=== PATIENT | female | born 1990 | race African-American/Black ===

== ENCOUNTER 2021-10-28 20:49 | Emergency (ER) | payer MEDICAID ==
[~2021-10-28] VITALS: Ht 157.5 cm; Wt 62.6 kg
--- NOTE | 2021-10-28 21:08 | NUR ---
PT WALKED INTO ER C/O CONSTANT CP SINCE YESTERDAY. CAME IN DUE TO WORSENING PAIN. 06/15
[2021-10-28] MEDS ORDERED: ASPIRIN 81 MG TAB.CHEW PO ONE (21:15)
[2021-10-28] MEDS ORDERED: NITROGLYCERIN OINT 1 GM PACKET TP ONE ×2 (21:15→21:37)
--- NOTE | 2021-10-28 21:34 | NUR ---
Dr. Donohue on bedside.
[2021-10-28 21:36] LABS: *URINE HCG, QUAL NEGATIVE (NEGATIVE)
[2021-10-28 21:37] LABS: HEMATOCRIT 39.4 % (31.2-41.9); MEAN CORPUSCULAR HEMOGLOBIN 26.1 uug (24.7-32.8); MEAN CORPUSCULAR VOLUME 78.2 fL (75.5-95.3); PLATELET COUNT (AUTO) 262 K/uL (179-408)
[2021-10-28] MEDS ORDERED: ASPIRIN 81 MG TAB.CHEW ONE (21:37)
[2021-10-28 21:58] LABS: CREATININE 0.9 mg/dL (0.6-1.3); POTASSIUM 3.5 mmol/L (3.5-5.1)
[2021-10-28 22:09] LABS: *AMPHETAMINE, URINE NEGATIVE (NEGATIVE); *CANNABINOID, URINE NEGATIVE (NEGATIVE); *COCCAINE, URINE NEGATIVE (NEGATIVE); *OPIATE, URINE NEGATIVE (NEGATIVE); *PHENCYCLIDINE SCREEN,URINE NEGATIVE (NEGATIVE)
[2021-10-28 22:10] LABS: BILIRUBIN,DIRECT 0.1 mg/dL (0.0-0.2); BILIRUBIN,TOTAL 0.4 mg/dL (0.2-1.0); TOTAL PROTEIN, SERUM 7.5 g/dL (6.4-8.2)
--- NOTE | 2021-10-28 22:30 | NUR ---
Called diamond powder technician Marco A to f/u on ETA of [facility], stated that he will call them again.
--- NOTE | 2021-10-28 22:45 | NUR ---
US tech at bedside.
[2021-10-28] MEDS ORDERED: HYDR-4209 PO (23:26)
--- NOTE | 2021-10-28 23:33 | NUR ---
Patient discharged to home in stable condition. Written and verbal after care instructions given. Patient verbalizes understanding of instructions. Stressed follow up or return to ER for worsening s/s.
[2021-10-28 23:36] VITALS: BP 118/81
== END 2021-10-28 23:33 | disposition home or self-care (01) ==
LOC: ER 20:51
DX: R07.9 Chest pain, unspecified (principal); R20.2 Paresthesia of skin
CPT/HCPCS: 36415; 70030-TC; 71045; 84703; 85025; 93005; A4663

== ENCOUNTER 2021-12-23 19:57 | Emergency (ER) | payer MEDICAID ==
[~2021-12-23] VITALS: Ht 157.5 cm; Wt 63.5 kg
[~2021-12-23 19:57] MED LIST: HYDR-4209 PO
--- NOTE | 2021-12-23 20:10 | NUR ---
pt ambulated to room 2a states has heart flutters and left side numbness.
--- NOTE | 2021-12-23 20:20 | NUR ---
Dr. Mendez at bedside for MSE.
[2021-12-23] MEDS ORDERED: KETOROLAC TROMETHAMINE 30 MG INJ IVP ONE (20:30)
[2021-12-23] MEDS ORDERED: IV NS 1000 ML 1,000 ML IV ONE (20:30)
[2021-12-23] MEDS ORDERED: diphenhydrAMINE 50 MG/1 ML VIAL IV ONE (20:30)
[2021-12-23] MEDS ORDERED: METOCLOPRAMIDE HCL 10 MG/2 ML VIAL IV ONE (20:30)
[2021-12-23] MEDS ORDERED: diphenhydrAMINE 50 MG/1 ML VIAL ONE (20:52)
[2021-12-23] MEDS ORDERED: KETOROLAC TROMETHAMINE 30 MG INJ ONE (20:52)
[2021-12-23] MEDS ORDERED: METOCLOPRAMIDE HCL 10 MG/2 ML VIAL ONE (20:53)
[2021-12-23 20:55] LABS: HEMATOCRIT 39.1 % (31.2-41.9); MEAN CORPUSCULAR HEMOGLOBIN 25.7 uug (24.7-32.8); MEAN CORPUSCULAR VOLUME 76.5 fL (75.5-95.3); PLATELET COUNT (AUTO) 273 K/uL (179-408)
[2021-12-23 21:01] LABS: CREATININE 1.1 mg/dL (0.6-1.3); MAGNESIUM 2.2 mg/dL (1.8-2.4); POTASSIUM 3.8 mmol/L (3.5-5.1)
--- NOTE | 2021-12-23 22:04 | NUR ---
Dr. Rosas at bedside speaking with pt.
[2021-12-23] MEDS ORDERED: NAPR-1164 PO (22:24)
[2021-12-23] MEDS ORDERED: DIPH25CA83 PO (22:24)
[2021-12-23] MEDS ORDERED: METO-295 PO (22:24)
[2021-12-23 22:33] VITALS: BP 106/76
== END 2021-12-23 22:33 | disposition home or self-care (01) ==
LOC: ER 20:01
DX: G43.909 Migraine, unspecified, not intractable, without status migrainosus (principal); Z87.891 Personal history of nicotine dependence; K21.9 Gastro-esophageal reflux disease without esophagitis
CPT/HCPCS: 36415; 80048; 83735; 85025; 85651; 93005; 96361; 96374; 96375; 99284; J1200; J1885; J2765; A4663; J7040

== ENCOUNTER 2022-03-17 02:05 | Emergency (ER) | payer MEDICAID ==
[~2022-03-17] VITALS: Ht 165.1 cm; Wt 68.0 kg
[~2022-03-17 02:05] MED LIST changes: +DIPH25CA83 PO; +METO-295 PO; +NAPR-1164 PO
[2022-03-17] MEDS ORDERED: ALBU2.5V13 IH (03:59)
[2022-03-17] MEDS ORDERED: NAPR-1164 PO (03:59)
[2022-03-17] MEDS ORDERED: METO-295 PO (04:05)
[2022-03-17] MEDS ORDERED: DIPH25CA83 PO (04:05)
[2022-03-17 04:20] VITALS: BP 110/70
[2022-03-17] MEDS ORDERED: BENZ-13 PO (20:29)
== END 2022-03-17 04:21 | disposition home or self-care (01) ==
LOC: ER 02:08
DX: J40 Bronchitis, not specified as acute or chronic (principal); Z20.822 Contact with and (suspected) exposure to COVID-19; Z87.891 Personal history of nicotine dependence; R06.02 Shortness of breath
CPT/HCPCS: 71045; 93005; A4663

== ENCOUNTER 2022-03-17 17:56 | Emergency (ER) | payer MEDICAID ==
[~2022-03-17] VITALS: Ht 165.1 cm; Wt 68.0 kg
[~2022-03-17 17:56] MED LIST changes: +ALBU2.5V13 IH
--- NOTE | 2022-03-17 18:05 | NUR ---
Pt placed into room 5a by food specialist on [facility] in pos of comfort. VSS, AAOx4, PERRLA, PE WNL. No pain or sob. No s/sxof distress present pt awaiting EDMD for eval.
[2022-03-17] MEDS ORDERED: IBUPROFEN 600 MG TABLET PO ONE (19:00)
--- NOTE | 2022-03-17 19:24 | NUR ---
Pt swabbed for rapid covid, PCR covid, and influenza. PCR corrier already picked up PCR swab. Pt tolerated well.
--- NOTE | 2022-03-17 19:30 | NUR ---
REPORT GIVEN BY OCEANOGRAPHER PHYSICAL ABDULL. PT NOTED TO BE IN BED RESTING COMFORTABLY, DENIES ANY PAIN/DISCOMFORT AT THIS TIME. NO SOB OR LABORED BREATHIING.
[2022-03-17] MEDS ORDERED: BENZ-13 PO (20:29)
--- NOTE | 2022-03-17 20:40 | NUR ---
Patient discharged to home in stable condition. Written and verbal after care instructions given. Patient verbalizes understanding of instructions. Stressed follow up or return to ER for worsening s/s. Denies any SOB or labored breathing, afebrile. Lung sounds clear bilaterally. Denies any pain/discomfort. Denies n/v/d, no CALL/dizzyness. Steay gait, picked up by .
[2022-03-17 20:41] VITALS: BP 110/78
== END 2022-03-17 20:42 | disposition home or self-care (01) ==
LOC: ER 17:58
DX: U07.1 COVID-19 (principal); Z28.310 Unvaccinated for COVID-19; Z87.891 Personal history of nicotine dependence
CPT/HCPCS: 36415; 87400; 93005; 99284; C9803; U0003; A4663

== ENCOUNTER 2022-05-24 20:52 | Emergency (ER) | payer MEDICAID ==
[~2022-05-24] VITALS: Ht 167.6 cm; Wt 68.0 kg
[~2022-05-24 20:52] MED LIST changes: +BENZ-13 PO
[2022-05-24] MEDS ORDERED: HYDR-3972 PO (21:31)
[2022-05-24 21:41] VITALS: BP 115/75
== END 2022-05-24 21:41 | disposition home or self-care (01) ==
LOC: ER 20:52
DX: R07.9 Chest pain, unspecified (principal); Z87.891 Personal history of nicotine dependence; Z98.82 Breast implant status; K21.9 Gastro-esophageal reflux disease without esophagitis
CPT/HCPCS: A4663

== ENCOUNTER 2022-06-02 00:14 | Emergency (ER) | payer SELFPAY ==
[~2022-06-02 00:14] MED LIST changes: +HYDR-3972 PO
--- NOTE | 2022-06-02 02:00 | NUR ---
PATIENT CALLED, BUT PATIENT WAS NOT IN THE WAITING ROOM OR OUTSIDE OF ER.
--- NOTE | 2022-06-02 03:00 | NUR ---
PATIENT WAS CALLED TO BE TRIAGED BUT WAS NOT PRESENT IN THE WAITING ROOM. PATIENT WAS NOT TRIAGED OR SEEN BY ERMD.
== END 2022-06-02 03:00 | disposition left against medical advice (07) ==
LOC: ER 01:43
DX: Z53.21 Procedure and treatment not carried out due to patient leaving prior to being seen by health care provider (principal)

== ENCOUNTER 2022-12-12 17:43 | Emergency (ER) | payer MEDICAID ==
[~2022-12-12] VITALS: Ht 157.5 cm; Wt 71.7 kg
[2022-12-12 18:21] LABS: HEMATOCRIT 38.6 % (31.2-41.9); MEAN CORPUSCULAR HEMOGLOBIN 25.6 uug (24.7-32.8); MEAN CORPUSCULAR VOLUME 78.3 fL (75.5-95.3); PLATELET COUNT (AUTO) 300 K/uL (179-408)
--- NOTE | 2022-12-12 18:27 | NUR ---
patient in room 1A seen and evaluated by ER physician.
--- NOTE | 2022-12-12 18:40 | NUR ---
patient refused to have IV line placed at this time
[2022-12-12 18:41] LABS: BILIRUBIN,DIRECT 0.1 mg/dL (0.0-0.2); BILIRUBIN,TOTAL 0.4 mg/dL (0.2-1.0); CREATININE 0.8 mg/dL (0.6-1.3); POTASSIUM 4.1 mmol/L (3.5-5.1); TOTAL PROTEIN, SERUM 7.5 g/dL (6.4-8.2)
--- NOTE | 2022-12-12 18:45 | NUR ---
pt. refused IV insertion
[2022-12-12] MEDS ORDERED: MORPHINE SULFATE 4 MG/1 ML DISP.SYRIN ONE (18:58)
[2022-12-12] MEDS ORDERED: HYDROCODONE/APAP 10-325 MG TABLET PO ONE (19:00)
[2022-12-12] MEDS ORDERED: MORPHINE SULFATE 4 MG/1 ML DISP.SYRIN IM ONE (19:00)
[2022-12-12] MEDS ORDERED: HYDROCODONE/APAP 10-325 MG TABLET ONE (19:29)
[2022-12-12] MEDS ORDERED: ONDANSETRON ODT 4 MG TAB.RAPDIS ONE (19:34)
[2022-12-12] MEDS ORDERED: ONDANSETRON ODT 4 MG TAB.RAPDIS SL ONE (19:45)
[2022-12-12] MEDS ORDERED: ONDA4TAB11 PO ×2 (20:14→20:18)
[2022-12-12] MEDS ORDERED: OXYC5CAP18 PO (20:14)
[2022-12-12] MEDS ORDERED: OXYC5TAB3 PO (20:18)
[2022-12-12] MEDS ORDERED: HYDROMORPHONE 1 MG/1 ML DISP.SYRIN IM ONE (21:15)
[2022-12-12] MEDS ORDERED: HYDROMORPHONE 1 MG/1 ML DISP.SYRIN ONE (22:39)
--- NOTE | 2022-12-12 22:50 | NUR ---
Patient discharged to home in stable condition. Written and verbal after care instructions given. Patient verbalizes understanding of instructions. Stressed follow up or return to ER for worsening s/s. Patient walked out accompained by her S/O.
[2022-12-12 23:25] VITALS: BP 112/68
== END 2022-12-12 22:59 | disposition home or self-care (01) ==
LOC: ER 17:45
DX: O26.891 Other specified pregnancy related conditions, first trimester (principal); R10.9 Unspecified abdominal pain; K21.9 Gastro-esophageal reflux disease without esophagitis; G43.909 Migraine, unspecified, not intractable, without status migrainosus; R10.2 Pelvic and perineal pain; Z79.899 Other long term (current) drug therapy; Z3A.08 8 weeks gestation of pregnancy
CPT/HCPCS: 99285; 76856; 80076; 80048; 85025; 85730; 86850; 86900; 86901; 84702; 36415; 96372 ×2; J1170; J2270; A4663; Q0162

== ENCOUNTER 2023-03-22 17:37 | Emergency (ER) | payer MEDICAID ==
[~2023-03-22] VITALS: Ht 160 cm; Wt 74.4 kg
[~2023-03-22 17:37] MED LIST changes: +ONDA4TAB11 PO; +OXYC5TAB3 PO
--- NOTE | 2023-03-22 18:50 | NUR ---
Dr Shen at the bedside for MSE.
[2023-03-22] MEDS ORDERED: CYCL5TAB PO (18:59)
[2023-03-22] MEDS ORDERED: KETOROLAC TROMETHAMINE 30 MG INJ IM ONE (19:00)
[2023-03-22] MEDS ORDERED: KETOROLAC TROMETHAMINE 30 MG INJ ONE (19:04)
[2023-03-22 19:08] VITALS: BP 107/70; O2SAT 96
== END 2023-03-22 19:10 | disposition home or self-care (01) ==
LOC: ER 17:37
DX: M79.602 Pain in left arm (principal); G43.909 Migraine, unspecified, not intractable, without status migrainosus; K21.9 Gastro-esophageal reflux disease without esophagitis; Z79.899 Other long term (current) drug therapy
CPT/HCPCS: 99283; 96372; J1885; A4663